=== PATIENT | male | born 1945 | race Caucasian/White ===

== ENCOUNTER 2017-11-11 15:18 | Emergency (ER) | payer MEDICARE, OTHER ==
[~2017-11-11] VITALS: Ht 177.8 cm; Wt 102.0 kg
[2017-11-11] MEDS ORDERED: DARU75TA PO (15:34)
[2017-11-11] MEDS ORDERED: ALEN5TAB2 PO (15:35)
[2017-11-11] MEDS ORDERED: ABAC1TAB14 PO (15:35)
[2017-11-11] MEDS ORDERED: FINA1TAB16 PO (15:36)
[2017-11-11] MEDS ORDERED: LISI2.5T PO (15:36)
[2017-11-11] MEDS ORDERED: HYDR12.53 PO (15:36)
[2017-11-11] MEDS ORDERED: CA C1TAB60 PO (15:36)
[2017-11-11] MEDS ORDERED: PRAV10TA2 PO (15:37)
[2017-11-11] MEDS ORDERED: SILD20TA PO (15:37)
[2017-11-11] MEDS ORDERED: PREG50CA PO (15:37)
[2017-11-11] MEDS ORDERED: TAMS0.4C2 PO (15:38)
[2017-11-11] MEDS ORDERED: SILVER NITRATE STICK TP ONE ×2 (15:40→16:00)
[2017-11-11] MEDS ORDERED: LIDOCAINE 1%, 20ML ONE (15:40)
[2017-11-11] MEDS ORDERED: PHENYLEPHRINE NASAL 1%, 15ML SPRAY ONE (15:40)
[2017-11-11] MEDS ORDERED: LIDOCAINE 2%, 20ML SQ ONE (16:00)
[2017-11-11] MEDS ORDERED: PHENYLEPHRINE NASAL 1%, 30ML DROPS NAS ONE (16:00)
[2017-11-11] MEDS ORDERED: PLEASE ENTER ALLERGIES MC SCH (16:00)
[2017-11-11] MEDS ORDERED: BACITRACIN ZINC OINT 500U/GM, 0.9 GM ONE (16:34)
[2017-11-11 17:11] VITALS: BP 119/70
== END 2017-11-11 17:34 | disposition home or self-care (01) ==
LOC: ED 16:00
DX: R04.0 Epistaxis (principal)
CPT/HCPCS: 30901; 99284